=== PATIENT | male | born 1955 | race Caucasian/White ===

== ENCOUNTER 2024-07-14 15:00 | Inpatient (IN) | payer MEDICARE, OTHER ==
[~2024-07-14] VITALS: Ht 185.4 cm; Wt 125.8 kg
[2024-07-14 15:00] VITALS: TEMP 97.8
[2024-07-14] MEDS ORDERED: FAMOTIDINE 20 MG/2 ML VIAL IV ONE (15:46)
[2024-07-14] MEDS ORDERED: HALOPERIDOL LACTATE 5 MG/ML VIAL ONE (15:46)
[2024-07-14] MEDS ORDERED: DIPHENHYDRAMINE HCL INJ 50 MG/ML VIAL ONE (15:46)
[2024-07-14] MEDS: DIPHENHYDRAMINE HCL INJ 50 MG/ML VIAL IV STA (15:51)
[2024-07-14] MEDS: DICYCLOMINE HCL 20 MG/2 ML VIAL IM ONE (15:52)
[2024-07-14] MEDS: SODIUM CHLORIDE 0.9% 1000ML 1,000 ML IV STA (15:52)
[2024-07-14] MEDS: HALOPERIDOL LACTATE 5 MG/ML VIAL IV ONE (15:52)
[2024-07-14] MEDS: ONDANSETRON HCL INJ 2MG/ML 2ML 2 MG/ML VIAL IV PRN (15:52)
[2024-07-14 16:17] LABS: BASOPHILS # (AUTO) 0.1 (0.0-0.1); BASOPHILS % 0.9 % (0.0-1.0); EOSINOPHILS # (AUTO) 0.2 (0.0-0.4); EOSINOPHILS % 1.8 % (0.0-6.0); HEMATOCRIT 48.4 % (38.2-49.6); HEMOGLOBIN 16.7 g/dL (14.0-18.0); LYMPHOCYTES # (AUTO) 2.1 (1.0-3.2); LYMPHOCYTES % 21.8 % (18.0-39.1); MEAN CORPUSCULAR HEMOGLOBIN 30.6 pg (28-32); MEAN CORPUSCULAR HGB CONC 34.5 g/dL (31-35); MEAN CORPUSCULAR VOLUME 88.6 fL (81-99); MONOCYTES # (AUTO) 0.8 (0.2-0.8); MONOCYTES % 8.7 % (4.4-11.3); NEUTROPHILS # (AUTO) 6.5 (2.1-6.9); NEUTROPHILS % 66.4 % (38.7-80.0); PLATELET COUNT 267 x10e3/uL (140-360); RED BLOOD COUNT 5.46 x10e6/uL (4.3-5.7); RED CELL DISTRIBUTION WIDTH 12.8 % (11.7-14.4)
[2024-07-14] MEDS: Morphine 4mg INJECTION 4 MG/ML INJ IV ONE (17:01)
[2024-07-14 17:12] LABS: ALBUMIN 4.8 g/dL (3.5-5.0); ALBUMIN/GLOBULIN RATIO 1.7 (0.8-2.0); ANION GAP 20.7 mmol/L (8-16); BILIRUBIN,TOTAL 0.8 mg/dL (0.2-1.2); CALCIUM 10.1 mg/dL (8.4-10.2); CREATININE, SERUM 1.18 mg/dL (0.72-1.25); POTASSIUM 3.7 mmol/L (3.5-5.1); TOTAL PROTEIN 7.6 g/dL (6.5-8.1)
[2024-07-14] MEDS ORDERED: IOPAMIDOL 370 MG/ML 100 ML INFUS..BTL INJ ONE (17:20)
[2024-07-14] MEDS ORDERED: ONDANSETRON HCL INJ 2MG/ML 2ML 2 MG/ML VIAL IV PRN (18:45)
[2024-07-14] MEDS ORDERED: Morphine 4mg INJECTION 4 MG/ML INJ IV PRN (18:45)
[2024-07-14] MEDS: SODIUM CHLORIDE 0.9% 1000ML 1,000 ML IV SCH (19:05)
[2024-07-14 20:30] VITALS: BP 144/87; PULSE 70; RESP 19; TEMP 98.4; O2SAT 98
[2024-07-14 20:50] VITALS: PULSE 70; RESP 18
[2024-07-14 21:50] VITALS: BP 155/85; PULSE 70; RESP 19; TEMP 98.4; O2SAT 99
[2024-07-14] MEDS ORDERED: GABAPENTIN300 MG PO (23:35)
[2024-07-14] MEDS ORDERED: LEVOTHYROXINE75 MCG PO (23:35)
[2024-07-14] MEDS ORDERED: LEVOCETIRIZINE D5 MG PO (23:35)
[2024-07-14] MEDS ORDERED: VITAMIN D PO (23:35)
[2024-07-14] MEDS ORDERED: JARDIANCE25 MG PO (23:35)
[2024-07-14] MEDS ORDERED: BUSPIRONE HCL5 MG PO (23:35)
[2024-07-14] MEDS ORDERED: EZETIMIBE10 MG PO (23:35)
[2024-07-14] MEDS ORDERED: HYDROCODON-ACE1 EAC9 PO (23:35)
[2024-07-14] MEDS ORDERED: METHOCARBAMOL750 MG PO (23:35)
[2024-07-14] MEDS ORDERED: AZELASTINE137 MCG/0. INH (23:35)
[2024-07-14] MEDS ORDERED: LANTUS 3ML100 UNITS/ SC (23:35)
[2024-07-14] MEDS ORDERED: NEBIVOLOL HCL10 MG PO (23:35)
[2024-07-14] MEDS ORDERED: MYCOPHENOLATE500 MG PO (23:35)
[2024-07-14] MEDS ORDERED: SIMPONI AR50 MG/4 ML (23:35)
[2024-07-14] MEDS ORDERED: MONTELUKAST SOD10 MG PO (23:35)
[2024-07-14] MEDS ORDERED: FENOFIBRATE160 MG PO (23:35)
[2024-07-14] MEDS ORDERED: IRBESARTAN-HCT1 EAC1 PO (23:35)
[2024-07-14] MEDS ORDERED: METFORMIN HCL500 M1 PO (23:35)
[2024-07-14] MEDS ORDERED: LEQVIO284 MG/1.5 (23:52)
[2024-07-15] VITALS (10 sets, daily range): BP systolic 145–190; BP diastolic 60–105; PULSE 65–75; RESP 16–20; TEMP 97.7–98.2; O2SAT 97–100
[2024-07-15 09:25] LABS: BASOPHILS # (AUTO) 0.1 (0.0-0.1); BASOPHILS % 0.8 % (0.0-1.0); EOSINOPHILS # (AUTO) 0.2 (0.0-0.4); HEMATOCRIT 44.3 % (38.2-49.6); HEMOGLOBIN 14.9 g/dL (14.0-18.0); LYMPHOCYTES # (AUTO) 3.2 (1.0-3.2); LYMPHOCYTES % 36.6 % (18.0-39.1); MEAN CORPUSCULAR HEMOGLOBIN 30.7 pg (28-32); MEAN CORPUSCULAR HGB CONC 33.6 g/dL (31-35); MEAN CORPUSCULAR VOLUME 91.3 fL (81-99); MONOCYTES # (AUTO) 0.9 (0.2-0.8); MONOCYTES % 10.5 % (4.4-11.3); NEUTROPHILS # (AUTO) 4.3 (2.1-6.9); NEUTROPHILS % 49.6 % (38.7-80.0); PLATELET COUNT 220 x10e3/uL (140-360); RED BLOOD COUNT 4.85 x10e6/uL (4.3-5.7); RED CELL DISTRIBUTION WIDTH 13.2 % (11.7-14.4); WHITE BLOOD COUNT 8.67 x10e3/uL (4.8-10.8)
[2024-07-15 09:53] LABS: ALBUMIN 4.1 g/dL (3.5-5.0); ALBUMIN/GLOBULIN RATIO 2.3 (0.8-2.0); ANION GAP 13.8 mmol/L (8-16); BILIRUBIN,TOTAL 0.7 mg/dL (0.2-1.2); CALCIUM 8.8 mg/dL (8.4-10.2); CREATININE, SERUM 1.07 mg/dL (0.72-1.25); POTASSIUM 3.8 mmol/L (3.5-5.1); TOTAL PROTEIN 5.9 g/dL (6.5-8.1)
[2024-07-15] MEDS ORDERED: DEXTROSE 50% SYRINGE 50 ML IV PRN ×2 (10:15→11:45)
[2024-07-15] MEDS ORDERED: MELATONIN 5 MG TABLET PO PRN (10:15)
[2024-07-15] MEDS ORDERED: DOCUSATE SODIUM 100 MG CAP PO PRN (10:15)
[2024-07-15] MEDS ORDERED: ALBUTEROL/IPRATROPIUM 3 ML NEB NEB PRN (10:15)
[2024-07-15] MEDS ORDERED: LIDOCAINE 4% PATCH TP PRN (10:15)
[2024-07-15] MEDS ORDERED: SIMETHICONE 80 MG CHEW PO PRN (10:15)
[2024-07-15] MEDS ORDERED: POTASSIUM CHLORIDE 20 MEQ TAB CR PO PRN (10:15)
[2024-07-15] MEDS ORDERED: BENZONATATE 100 MG CAP PO PRN (10:15)
[2024-07-15] MEDS: INSULIN LISPRO 100 UNIT/1 ML 3ML VIAL SQ SCH (16:30)
[2024-07-15] MEDS: ENOXAPARIN SOD INJ 40 MG/0.4 ML SYR SC SCH (17:21)
[2024-07-15] MEDS: HYDRALAZINE HCL 20 MG/ML VIAL IV PRN (21:14)
[2024-07-15] MEDS: DIPHENHYDRAMINE HCL 25 MG CAP PO PRN (23:12)
[2024-07-16] VITALS (8 sets, daily range): BP systolic 176–204; BP diastolic 87–118; PULSE 67–76; RESP 10–21; TEMP 97.6–99.5; O2SAT 98–100
[2024-07-16 05:30] LABS: BASOPHILS # (AUTO) 0.1 (0.0-0.1); BASOPHILS % 0.7 % (0.0-1.0); EOSINOPHILS # (AUTO) 0.1 (0.0-0.4); EOSINOPHILS % 1.2 % (0.0-6.0); HEMATOCRIT 43.3 % (38.2-49.6); HEMOGLOBIN 14.8 g/dL (14.0-18.0); LYMPHOCYTES # (AUTO) 2.4 (1.0-3.2); LYMPHOCYTES % 25.9 % (18.0-39.1); MEAN CORPUSCULAR HEMOGLOBIN 30.8 pg (28-32); MEAN CORPUSCULAR HGB CONC 34.2 g/dL (31-35); MONOCYTES # (AUTO) 0.8 (0.2-0.8); NEUTROPHILS # (AUTO) 5.7 (2.1-6.9); NEUTROPHILS % 62.8 % (38.7-80.0); PLATELET COUNT 244 x10e3/uL (140-360); RED BLOOD COUNT 4.81 x10e6/uL (4.3-5.7); RED CELL DISTRIBUTION WIDTH 13.2 % (11.7-14.4)
[2024-07-16 06:08] LABS: ALBUMIN 4.3 g/dL (3.5-5.0); ALBUMIN/GLOBULIN RATIO 1.7 (0.8-2.0); ANION GAP 14.9 mmol/L (8-16); CALCIUM 9.2 mg/dL (8.4-10.2); CHOL/HDL RATIO 3.1 (3.9-4.7); CREATININE, SERUM 0.85 mg/dL (0.72-1.25); POTASSIUM 3.9 mmol/L (3.5-5.1); TOTAL PROTEIN 6.8 g/dL (6.5-8.1)
[2024-07-16 06:30] LABS: THYROID STIMULATING HORMONE 1.151 uIU/mL (0.350-4.940)
[2024-07-16] MEDS: GABAPENTIN 300 MG CAP PO SCH (08:16)
[2024-07-16] MEDS: MONTELUKAST SODIUM 10 MG TAB PO SCH (08:16)
[2024-07-16] MEDS: FENOFIBRATE 145 MG TAB PO SCH (08:16)
[2024-07-16] MEDS: BUSPIRONE HCL 5 MG TAB PO SCH (08:16)
[2024-07-16] MEDS: LEVOTHYROXINE SODIUM 75 MCG TAB PO SCH (08:16)
[2024-07-16] MEDS: EZETIMIBE 10 MG TAB PO SCH (08:16)
[2024-07-16] MEDS: PANTOPRAZOLE SOD 40 MG TABEC PO SCH (08:17)
[2024-07-16] MEDS: IRBESARTAN 150 MG TAB PO SCH (08:20)
[2024-07-16] MEDS: NEBIVOLOL 10 MG TAB PO SCH (08:21)
[2024-07-16] MEDS: HYDROCHLOROTHIAZIDE 25 MG TAB PO SCH (08:21)
[2024-07-16] MEDS: NIFEDIPINE CR 30 MG TAB PO SCH (15:09)
[2024-07-16] MEDS: ACETAMINOPHEN 325 MG TAB PO PRN (16:22)
[2024-07-16] MEDS ORDERED: PLAVIX75 MG PO (18:35)
[2024-07-16] MEDS ORDERED: ASPIRIN81 MG PO (18:36)
[2024-07-16] MEDS ORDERED: ATORVASTATIN CA20 MG PO (18:36)
== END 2024-07-16 19:42 | disposition home or self-care (01) | DRG 438 ==
LOC: ER 15:05 → ERHOLD 18:46 → MED/SURG3 21:20
PROVIDERS: ADMIT Internal Medicine; ATTEND Internal Medicine
DX: K85.20 Alcohol induced acute pancreatitis without necrosis or infection (principal); I21.A1 Myocardial infarction type 2; T38.3X1A Poisoning by insulin and oral hypoglycemic [antidiabetic] drugs, accidental (unintentional), initial encounter; Y92.009 Unspecified place in unspecified non-institutional (private) residence as the place of occurrence of the external cause; I10 Essential (primary) hypertension; E78.00 Pure hypercholesterolemia, unspecified; M45.9 Ankylosing spondylitis of unspecified sites in spine; F10.20 Alcohol dependence, uncomplicated; Y90.0 Blood alcohol level of less than 20 mg/100 ml; K76.0 Fatty (change of) liver, not elsewhere classified; E11.43 Type 2 diabetes mellitus with diabetic autonomic (poly)neuropathy; K31.84 Gastroparesis; Z79.85 Long-term (current) use of injectable non-insulin antidiabetic drugs; Z79.4 Long term (current) use of insulin; Z79.84 Long term (current) use of oral hypoglycemic drugs; K59.00 Constipation, unspecified; E03.9 Hypothyroidism, unspecified; M06.9 Rheumatoid arthritis, unspecified; E66.01 Morbid (severe) obesity due to excess calories; Z68.36 Body mass index [BMI] 36.0-36.9, adult; K57.30 Diverticulosis of large intestine without perforation or abscess without bleeding; F41.9 Anxiety disorder, unspecified; Z79.899 Other long term (current) drug therapy; Z79.82 Long term (current) use of aspirin; Z79.02 Long term (current) use of antithrombotics/antiplatelets
CPT/HCPCS: 36415; 74177; 80053; 80061; 80320; 82948; 83036; 83690; 84443; 84478; 84484; 85025; 86301; 93306; 94799; 99284; J0360; J1200; J1308; J1630; J1650; J2270; J2405; J2470; J7030; Q9967